=== PATIENT | male | born 1955 | race Caucasian/White ===

== ENCOUNTER 2019-11-04 07:46 | Day surgery (SDC) | payer OTHER ==
[2019-11-04] VITALS (10 sets, daily range): BP systolic 110–147; BP diastolic 67–109
[~2019-11-04] VITALS: Ht 182.9 cm; Wt 103.8 kg
--- NOTE | 2019-11-04 08:00 | NUR ---
Pt ambulated independently on to unit and in to room. Pt oriented to room, including call light use. Vital signs obtained, procedure preparation performed.
[2019-11-04] MEDS ORDERED: PRED20TA PO (08:20)
[2019-11-04] MEDS ORDERED: TRAN4TAB24 PO (08:20)
[2019-11-04] MEDS ORDERED: CARV3.122 PO (08:20)
[2019-11-04] MEDS ORDERED: normal saline 1,000 ML IV SCH (08:20)
[2019-11-04] MEDS ORDERED: diphenhydrAMINE 25mg capsule PO PRN (08:20)
[2019-11-04] MEDS ORDERED: RIVA20TA PO (08:20)
[2019-11-04] MEDS ORDERED: ROSU10TA28 PO (08:20)
[2019-11-04] MEDS ORDERED: LIDOcaine 1% (10mg/ml)w/preservative injection 20ml MDV ONE (09:03)
[2019-11-04] MEDS ORDERED: fentaNYL/PF 50MCG/1 ML 2ML syringe ONE ×3 (09:03→10:41)
[2019-11-04] MEDS ORDERED: iohexol 350MG/ML 100ml bottle IV ONE ×3 (09:03→10:47)
[2019-11-04] MEDS ORDERED: iohexol 350 MG/ML 50ML vial IV ONE (09:03)
[2019-11-04] MEDS ORDERED: midazolam 2 mg/2 ml injection ONE ×4 (09:03→10:41)
[2019-11-04] MEDS ORDERED: LIDOcaine/PRILOcaine 5gm cream TP ONE (09:05)
[2019-11-04] MEDS ORDERED: heparin 1,000unit/ml 10ml vial 10 ML ONE (09:12)
[2019-11-04] MEDS ORDERED: verapamil 2.5 mg/ml inj IV ONE (09:12)
[2019-11-04] MEDS ORDERED: nitroGLYCERIN-Tridil 50MG/D5W 250 ML IV ONE (09:12)
--- NOTE | 2019-11-04 09:20 | NUR ---
Pt transported out of room via gurney to quality control lab tech.
[2019-11-04 09:43] LABS: BASOPHILS % (AUTO) 0.3 % (0-1); EOSINOPHILS % (AUTO) 0.5 % (0-6); HEMATOCRIT 42.4 % (42.0-52.0); HEMOGLOBIN 14.2 g/dl (14.0-17.9); LYMPHOCYTES # (AUTO) 1.1 X10'3 (1.1-4.8); LYMPHOCYTES % (AUTO) 10.7 % (21-51); MEAN CORPUSCULAR HEMOGLOBIN 30.4 PG (27.0-31.0); MEAN CORPUSCULAR HGB CONC 33.6 g/dL (33.0-36.5); MEAN CORPUSCULAR VOLUME 90.3 FL (78-98); MEAN PLATELET VOLUME 7.9 FL (7.4-10.4); MONOCYTES # (AUTO) 0.3 X10'3 (0-0.9); MONOCYTES % (AUTO) 2.5 % (2-12); NEUTROPHILS # (AUTO) 8.6 X10'3 (1.8-7.7); PLATELET COUNT 217 X10'3 (140-440); RED BLOOD COUNT 4.69 X10'6 (4.70-6.10); RED CELL DISTRIBUTION WIDTH 14.9 % (11.5-14.5)
[2019-11-04 09:46] LABS: ALBUMIN 3.6 G/DL (3.4-5.0); ANION GAP 8 (8-16); BLOOD UREA NITROGEN 22 MG/DL (7-18); BUN/CREATININE RATIO 19.3 (5.4-32.0); CALCIUM 8.8 MG/DL (8.5-10.1); CHLORIDE 107 MMOL/L (99-107); CREATININE 1.14 MG/DL (0.60-1.10); GLUCOSE 127 MG/DL (70-104); POTASSIUM 4.4 MMOL/L (3.5-5.1); SODIUM 141 MMOL/L (135-145); TOTAL CARBON DIOXIDE 26.4 MMOL/L (24-32); eGFR 65 ML/MIN
[2019-11-04] MEDS ORDERED: proCHLORperazine 10 MG/2 ml inj ONE (09:49)
[2019-11-04] MEDS ORDERED: clopidogrel 300mg tablet ONE (11:02)
--- NOTE | 2019-11-04 11:10 | NUR ---
Pt returned to room from research laboratory technician. Vasc band present to R wrist, no bleeding present. Post procedure vital signs initiated. Pt offered breakfast tray.
[2019-11-04] MEDS ORDERED: normal saline 1000ml 1,000 ML IV SCH (11:25)
--- NOTE | 2019-11-04 11:25 | NUR ---
Dr. Dupree at bedside. Physician released partial pressure from vasc band to alleviate pt's complaints of pain. Small amount of bleeding noted, physician aware. Will continue to closely monitor.
== END 2019-11-04 14:50 | disposition home or self-care (01) ==
LOC: SSTAY O 07:46
PROVIDERS: ATTEND Internal Medicine Cardiovascular Disease
DX: I47.2 Ventricular tachycardia (principal); I25.10 Atherosclerotic heart disease of native coronary artery without angina pectoris; I25.2 Old myocardial infarction; I25.5 Ischemic cardiomyopathy; E78.00 Pure hypercholesterolemia, unspecified; I10 Essential (primary) hypertension; Z95.5 Presence of coronary angioplasty implant and graft; Z79.899 Other long term (current) drug therapy
CPT/HCPCS: 36415; 80048; 83735; 85025; 85610; 93005; 93458; 99152; 99153; C1725; C1769; C1874; C1892; C1894; C9600; J0780; J1644; J2001; J2250; J3010; J7030; Q0163; Q9967; A4620; C1751; J3490

== ENCOUNTER 2019-12-20 10:43 | Day surgery (SDC) | payer OTHER ==
[~2019-12-20] VITALS: Ht 182.9 cm; Wt 105.3 kg
[~2019-12-20 10:43] MED LIST: CARV3.122 PO; PRED20TA PO; RIVA20TA PO; ROSU10TA28 PO; TRAN4TAB24 PO
[2019-12-20 11:00] VITALS: BP 126/71
[2019-12-20] MEDS ORDERED: normal saline 1000ml 1,000 ML IV SCH ×2 (11:10→13:35)
[2019-12-20] MEDS ORDERED: RIVA20TA PO (11:13)
[2019-12-20] MEDS ORDERED: ROSU10TA2 PO (11:13)
[2019-12-20 11:45] LABS: BASOPHILS % (AUTO) 0.4 % (0-1); EOSINOPHILS % (AUTO) 0.4 % (0-6); HEMATOCRIT 42.8 % (42.0-52.0); HEMOGLOBIN 14.1 g/dl (14.0-17.9); LYMPHOCYTES # (AUTO) 0.9 X10'3 (1.1-4.8); MEAN CORPUSCULAR VOLUME 90.8 FL (78-98); MEAN PLATELET VOLUME 7.5 FL (7.4-10.4); MONOCYTES # (AUTO) 0.3 X10'3 (0-0.9); MONOCYTES % (AUTO) 3.2 % (2-12); NEUTROPHILS # (AUTO) 6.8 X10'3 (1.8-7.7); PLATELET COUNT 219 X10'3 (140-440); RED BLOOD COUNT 4.71 X10'6 (4.70-6.10); RED CELL DISTRIBUTION WIDTH 15.3 % (11.5-14.5); WHITE BLOOD COUNT 7.9 X10'3 (4.5-11.0)
[2019-12-20] MEDS ORDERED: fentaNYL/PF 50MCG/1 ML 2ML syringe ONE ×2 (11:46→12:39)
[2019-12-20] MEDS ORDERED: midazolam 2 mg/2 ml injection ONE ×4 (11:47→12:38)
[2019-12-20] MEDS ORDERED: vancomycin 1,000mg inj ONE (11:47)
[2019-12-20] MEDS ORDERED: LIDOcaine 1% W/epiNEPHrine 1:100,000 20ml vial ONE (11:47)
[2019-12-20] MEDS ORDERED: ceFAZolin 1000mg inj ONE (11:53)
[2019-12-20 12:02] LABS: ALBUMIN 3.7 G/DL (3.4-5.0); ANION GAP 7 (8-16); BLOOD UREA NITROGEN 18 MG/DL (7-18); BUN/CREATININE RATIO 16.7 (5.4-32.0); CALCIUM 8.9 MG/DL (8.5-10.1); CHLORIDE 105 MMOL/L (99-107); CREATININE 1.08 MG/DL (0.60-1.10); GLUCOSE 137 MG/DL (70-104); POTASSIUM 4.3 MMOL/L (3.5-5.1); SODIUM 138 MMOL/L (135-145); TOTAL CARBON DIOXIDE 25.8 MMOL/L (24-32); eGFR 69 ML/MIN
[2019-12-20 13:15] VITALS: BP 128/75
[2019-12-20 13:30] VITALS: BP 134/76
[2019-12-20] MEDS ORDERED: ketorolac tromethamine 15mg/ml inj. IV ONE (13:40)
[2019-12-20 13:45] VITALS: BP 119/77
[2019-12-20 14:00] VITALS: BP 107/66
[2019-12-20 14:15] VITALS: BP 119/74
== END 2019-12-20 14:40 | disposition home or self-care (01) ==
LOC: U 10:43 → MED 3N 10:43 → U 14:40
PROVIDERS: ATTEND Internal Medicine Cardiovascular Disease
DX: I47.2 Ventricular tachycardia (principal); I25.10 Atherosclerotic heart disease of native coronary artery without angina pectoris; E78.00 Pure hypercholesterolemia, unspecified; I25.5 Ischemic cardiomyopathy; I10 Essential (primary) hypertension; I25.2 Old myocardial infarction; Z79.899 Other long term (current) drug therapy; Z95.5 Presence of coronary angioplasty implant and graft
CPT/HCPCS: 33249; 36415; 71045; 80048; 83735; 85025; 85610; 93005; 99152; 99153; C1722; C1777; C1894; J0690; J1885; J2250; J3010; J3370; A4565; A4620